=== PATIENT | female | born 1970 | race Caucasian/White ===

== ENCOUNTER 2017-01-23 22:22 | Emergency (ER) | payer BC ==
[~2017-01-23] VITALS: Ht 170.2 cm; Wt 53.5 kg
[2017-01-23] MEDS ORDERED: PRED20TA PO (22:36)
[2017-01-23] MEDS ORDERED: AMOX500T PO (22:36)
[2017-01-24 00:54] VITALS: BP 104/65
[2017-01-24] MEDS ORDERED: NS 1,000 ML IV ONE (01:00)
== END 2017-01-24 01:05 | disposition home or self-care (01) ==
LOC: M ED 01-24 00:43
DX: K91.840 Postprocedural hemorrhage of a digestive system organ or structure following a digestive system procedure (principal); Z79.2 Long term (current) use of antibiotics; Z79.52 Long term (current) use of systemic steroids